=== PATIENT | female | born 1955 | race Caucasian/White ===

== ENCOUNTER → 2016-10-03 | Outpatient (CLI) | payer OTHER ==
[~2016-10-03] MED LIST: CEFU1TAB43 PO; DOXY100T PO; LEVO.075 PO; LISI-585 PO; VALA500 PO
[2016-10-03 13:04] LABS: AUTOMATED NEUTROPHIL # 1.6 TH/MM3 (1.8-7.7); BASOPHIL % 0.2 % (0.0-2.0); EOSINOPHIL # 0.4 TH/MM3 (0-0.4); HEMATOCRIT 41.7 % (35.0-46.0); HEMO FLAGS DIFF FINAL; LYMPH % 38.4 % (9.0-44.0); LYMPHOCYTE # 1.6 TH/MM3 (1.0-4.8); MEAN CELL VOLUME 95.4 FL (80.0-100.0); MEAN CORPUSCULAR HEMOGLOBIN 31.4 PG (27.0-34.0); MEAN CORPUSCULAR HGB CONC 32.9 % (32.0-36.0); MONO % 12.3 % (0.0-8.0); NEUT % 39.1 % (16.0-70.0); PLATELET COUNT 232 TH/MM3 (150-450); RED BLOOD COUNT 4.37 MIL/MM3 (4.00-5.30); RED CELL DISTRIBUTION WIDTH 13.3 % (11.6-17.2); WHITE BLOOD COUNT 4.1 TH/MM3 (4.0-11.0)
[2016-10-03 13:41] LABS: ALKALINE PHOSPHATASE 48 U/L (45-117); ALT (GPT) 35 U/L (10-53); ANION GAP 6 MEQ/L (5-15); AST (GOT) 23 U/L (15-37); BICARBONATE 29.3 MEQ/L (21.0-32.0); BLOOD UREA NITROGEN 19 MG/DL (7-18); CHLORIDE 105 MEQ/L (98-107); FREE T4 0.98 NG/DL (0.76-1.46); GLOMERULAR FILTRATION RATE 71 ML/MIN (>89); GLUCOSE,FASTING 96 MG/DL (74-99); HDL CHOLESTEROL 93.8 MG/DL (40.0-60.0); LDL CHOLESTEROL 127 MG/DL (0-99); POTASSIUM 3.9 MEQ/L (3.5-5.1); SODIUM (NA) 140 MEQ/L (136-145); TOTAL BILIRUBIN ADULT 0.4 MG/DL (0.2-1.0)
== END ==
LOC: PLAB 09:50
PROVIDERS: ATTEND Internal Medicine
DX: Z00.00 Encounter for general adult medical examination without abnormal findings (principal)
CPT/HCPCS: 36415; 80053; 80061; 82306; 84439; 84443; 85025

== ENCOUNTER → 2017-06-26 | Outpatient (CLI) | payer OTHER ==
[2017-06-26 13:19] LABS: AUTOMATED NEUTROPHIL # 1.9 TH/MM3 (1.8-7.7); BASOPHIL # 0.1 TH/MM3 (0-0.2); BASOPHIL % 1.4 % (0.0-2.0); EOSINOPHIL # 0.3 TH/MM3 (0-0.4); EOSINOPHIL % 6.6 % (0.0-4.0); HEMATOCRIT 42.2 % (35.0-46.0); HEMO FLAGS DIFF FINAL; LYMPH % 34.5 % (9.0-44.0); LYMPHOCYTE # 1.4 TH/MM3 (1.0-4.8); MEAN CELL VOLUME 97.4 FL (80.0-100.0); MEAN CORPUSCULAR HEMOGLOBIN 32.1 PG (27.0-34.0); MONO % 12.1 % (0.0-8.0); NEUT % 45.4 % (16.0-70.0); PLATELET COUNT 227 TH/MM3 (150-450); RED BLOOD COUNT 4.34 MIL/MM3 (4.00-5.30); RED CELL DISTRIBUTION WIDTH 13.1 % (11.6-17.2); WHITE BLOOD COUNT 4.1 TH/MM3 (4.0-11.0)
[2017-06-26 13:55] LABS: WESTERGREN SEDIMENTATION RATE 4 mm/hr (0-30)
[2017-06-29 13:53] LABS: IGF ZSCORE MALE ND (()); IGF-1 GC/MS 76 ng/mL (41-279)
== END ==
LOC: PLAB 08:08
PROVIDERS: ATTEND Internal Medicine
DX: R53.83 Other fatigue (principal); R51 Headache
CPT/HCPCS: 36415; 82533; 84146; 84305; 84443; 85025; 85652

== ENCOUNTER 2017-10-30 08:47 | Emergency (ER) | payer OTHER ==
[~2017-10-30] VITALS: Ht 170.2 cm; Wt 66.0 kg
[2017-10-30 08:52] VITALS: BP 208/101; PULSE 85; RESP 16; TEMP 98.5; O2SAT 100
[2017-10-30] MEDS ORDERED: COZA50TA PO (09:25)
[2017-10-30] MEDS ORDERED: LEVO.075 PO (09:25)
[2017-10-30] MEDS ORDERED: VALT1TAB PO (09:25)
--- NOTE | 2017-10-30 09:26 | PD ---
HPI Chief Complaint: Abdominal Pain Time Seen by Provider: 09:01 Travel History International Travel<30 days: No Contact w/Intl Traveler<30days: No Traveled to known affect area: No History of Present Illness HPI Patient presents to the emergency department with 3 days of abdominal pain. Patient states that the pain initially was on the right side of her chest and moved to epigastric area. The pain in the chest area was described as being right-sided, intermittent, seconds in duration, nonradiating, but no chest pain currently. The pain moved to her abdominal area. States that she felt like she had indigestion and took Cassie-[place] without relief. Abdominal pain is described as radiating to her right shoulder/neck/scalp, intermittent, but no pain currently. Also reporting chills but no fever, nausea but no vomiting, decreased p.o. intake (coffee approximately 2 hours ago). Also reports 4 episodes of nonbloody diarrhea that began this morning. Reports that she took Motrin on empty stomach yesterday. PFSH Past Medical History Hx Anticoagulant Therapy: No Cancer: No Cardiovascular Problems: Yes (HTN) Diabetes: No Glaucoma: No Hepatitis: No Hiatal Hernia: No Hypertension: Yes Thyroid Disease: Yes ?: Not Past Surgical History Narrative Surgical Laminectomy, tonsils, jaw for TMJ, left knee Gynecologic Surgery: Yes (D&C) Oral Surgery: Yes (T&A (AGE 21); TMJ SX (FX JAW)) Pacemaker: No Social History Alcohol Use: Yes (SOCIALLY) Tobacco Use: No Allergies-Medications (Allergen,Severity, Reaction): Coded Allergies: Penicillins (Verified Allergy, Severe, rash, 10/30/17) penicillin G (Unverified Allergy, Intermediate, RASH, 10/30/17) Reported Meds & Prescriptions Reported Meds & Active Scripts Active Bentyl (Dicyclomine HCl) 10 Mg Cap 20 Mg PO QID 3 Days Zofran (Ondansetron HCl) 4 Mg Tab 4 Mg PO Q6HR PRN 3 Days Reported Valtrex (Valacyclovir HCl) 1,000 Mg Tab 1,000 Mg PO DAILY Synthroid (Levothyroxine Sodium) 75 Mcg Tab 75 Mcg PO DAILY Cozaar (Losartan Potassium) 50 Mg Tab 50 Mg PO DAILY Review of Systems Except as stated in HPI: all other systems reviewed are Neg Physical Exam Narrative GENERAL: No acute distress SKIN: Focused skin assessment warm/dry. HEAD: Atraumatic. Normocephalic. EYES: No scleral icterus. No injection or drainage. Extra ocular muscles intact. ENT: No nasal bleeding or discharge. Mucous membranes pink and moist. NECK: Trachea midline. No JVD. CARDIOVASCULAR: Regular rate and rhythm. No murmur appreciated. RESPIRATORY: No accessory muscle use. Clear to auscultation. Breath sounds equal bilaterally. GASTROINTESTINAL: Abdomen soft, non-tender, nondistended. Hepatic and splenic margins not palpable. MUSCULOSKELETAL: No obvious deformities. No clubbing. No cyanosis. No edema. NEUROLOGICAL: Awake and alert. No obvious cranial nerve deficits. Motor grossly within normal limits. Normal speech. PSYCHIATRIC: Appropriate mood and affect; insight and judgment normal. Data Data Last Documented VS Vital Signs Date Time Temp Pulse Resp B/P (MAP) Pulse Ox O2 Delivery O2 Flow Rate FiO2 10/30/17 14:30 66 18 124/78 (93) 96 Room Air 10/30/17 08:52 98.5 Orders Orders Complete Blood Count With Diff (10/30/17 09:14) Comprehensive Metabolic Panel (10/30/17 09:14) Lipase (10/30/17 09:14) Abdomen, Flat & Upright (10/30/17 ) Us Abdomen Gallbladder (10/30/17 ) Iv Access Insert/Monitor (10/30/17 09:14) Ecg Monitoring (10/30/17 09:14) Electrocardiogram (10/30/17 09:14) Troponin I (10/30/17 09:14) Hydromorphone Pf Inj (Dilaudid Pf Inj) (10/30/17 11:30) Sodium Chlorid 0.9% 500 Ml Inj (Ns 500 M (10/30/17 11:30) Ct Abd/Pel W Iv Contrast(Rout) (10/30/17 11:19) Sodium Chloride 0.9% Flush (Ns Flush) (10/30/17 11:30) Iohexol 350 Inj (Omnipaque 350 Inj) (10/30/17 11:52) Famotidine Inj (Pepcid Inj) (10/30/17 12:45) Al-Mag Hy-Si 40-40-4 Mg/Ml Liq (Mag-Al P (10/30/17 12:45) Anmoe-Jdqxyn-Trqnft-Pb Liq ( Liq (10/30/17 12:45) Lidocaine 2% Viscous (Xylocaine 2% Visco (10/30/17 12:45) Ondansetron Inj (Zofran Inj) (10/30/17 14:15) Sodium Chlorid 0.9% 500 Ml Inj (Ns 500 M (10/30/17 14:15) Labs Laboratory Tests Test 10/30/17 09:30 White Blood Count 5.9 TH/MM3 Red Blood Count 4.45 MIL/MM3 Hemoglobin 14.4 GM/DL Hematocrit 42.3 % Mean Corpuscular Volume 95.0 FL Mean Corpuscular Hemoglobin 32.3 PG Mean Corpuscular Hemoglobin Concent 34.0 % Red Cell Distribution Width 12.7 % Platelet Count 246 TH/MM3 Mean Platelet Volume 8.0 FL Neutrophils (%) (Auto) 66.1 % Lymphocytes (%) (Auto) 21.4 % Monocytes (%) (Auto) 7.6 % Eosinophils (%) (Auto) 4.3 % Basophils (%) (Auto) 0.6 % Neutrophils # (Auto) 3.9 TH/MM3 Lymphocytes # (Auto) 1.3 TH/MM3 Monocytes # (Auto) 0.4 TH/MM3 Eosinophils # (Auto) 0.3 TH/MM3 Basophils # (Auto) 0.0 TH/MM3 CBC Comment DIFF FINAL Differential Comment Blood Urea Nitrogen 10 MG/DL Creatinine 0.67 MG/DL Random Glucose 109 MG/DL Total Protein 7.9 GM/DL Albumin 3.9 GM/DL Calcium Level 9.4 MG/DL Alkaline Phosphatase 62 U/L Aspartate Amino Transf (AST/SGOT) 30 U/L Alanine Aminotransferase (ALT/SGPT) 32 U/L Total Bilirubin 0.6 MG/DL Sodium Level 139 MEQ/L Potassium Level 4.2 MEQ/L Chloride Level 105 MEQ/L Carbon Dioxide Level 27.0 MEQ/L Anion Gap 7 MEQ/L Estimat Glomerular Filtration Rate 89 ML/MIN Troponin I LESS THAN 0.02 NG/ML Lipase 175 U/L MDM Medical Decision Making Medical Screen Exam Complete: Yes Emergency Medical Condition: Yes Interpretation(s) EKG: Sinus rhythm, rate 68, normal axis, normal intervals, no ST depression, no ST elevation, no Q waves, T wave inversion in V1. ABD XR: FINDINGS: Supine and upright views of the abdomen were performed. The abdominal bowel gas pattern is normal. No air fluid levels are seen. No abnormal masses, calcifications, or organomegaly is seen. The visualized lower lungs are clear. No evidence of free intraperitoneal gas. The osseous structures are unremarkable. CONCLUSION: Negative Last Impressions Gall Bladder Ultrasound 10/30/17 Signed Impressions: Service Date/Time: Monday, October 30, 2017 09:55 - CONCLUSION: Normal examination. Rudi Carrasco MD Abdomen X-Ray 10/30/17 Signed Impressions: Service Date/Time: Monday, October 30, 2017 09:36 - CONCLUSION: Negative Juaquin Zazueta MD FACR Ct abd/pelvis FINDINGS: LOWER LUNGS: The visualized lower lungs are clear. LIVER: Homogeneous density without lesion. There is no dilation of the biliary tree. No calcified gallstones. SPLEEN: Normal size without lesion. PANCREAS: Within normal limits. KIDNEYS: Normal in size and shape. There is no mass, stone or hydronephrosis. ADRENAL GLANDS: Within normal limits. VASCULAR: There is no aortic aneurysm. There is mild atherosclerotic calcification of the internal iliac vessels. BOWEL/MESENTERY: The stomach, small bowel, and colon demonstrate no acute abnormality. There is no free intraperitoneal air or fluid. The appendix and terminal ileum have a normal appearance. ABDOMINAL WALL: Within normal limits. RETROPERITONEUM: There is no lymphadenopathy. BLADDER: No wall thickening or mass. REPRODUCTIVE: Within normal limits. INGUINAL: There is no lymphadenopathy or hernia. MUSCULOSKELETAL: No acute osseous abnormality is identified. CONCLUSION: No acute abnormality is identified within the abdomen or pelvis. 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 Presents with 3 day history of epigastric pain, initially began as right sided chest pain, diarrhea 1 day. Check labs, ultrasound, abdominal x-ray. Patient is not requesting any pain medication or antiemetic. 1330: Patient received IV pepcid and GI cocktail. She vomited the GI cocktail. Given 4mg IV zofran. 1504: Patient reprts feeling better, drinking gingerale, no pain in chest/ shoulder/neck/head but states stomach is churning with the gingerale a little. 1546: Patient feels better. Tolerated po but states stomach churning "just a little." Will d/c with bentyl and zofran prn. Return instructions. Diagnosis Primary Impression: Gastroenteritis Patient Instructions: Gastroenteritis (ED), General Instructions Additional Instructions: 1. Followup with PCP in 48 to 72 hours. 2. Return to ER immediately for fever, bloody diarrhea, chest pain,abdominal pain, shortness of breath, vomiting despite zofran or if taking zofran more than twice in 24 hours, or for any new/ worrisome/worsening symptoms. Med/Other Pt SpecificInfo: Prescription(s) given Scripts Dicyclomine (Bentyl) 10 Mg Cap 20 MG PO QID for Bowel Management for 3 Days, CAP 0 Refills Prov: Melinda Chacko MD 10/30/17 Ondansetron (Zofran) 4 Mg Tab 4 MG PO Q6HR Y for NAUSEA OR VOMITING for 3 Days, #12 TAB 0 Refills Prov: Melinda Chacko MD 10/30/17 Disposition: 01 DISCHARGE HOME Condition: Stable Melinda Chacko MD Oct 30, 2017 09:26
[2017-10-30 09:39] LABS: AUTOMATED NEUTROPHIL # 3.9 TH/MM3 (1.8-7.7); BASOPHIL % 0.6 % (0.0-2.0); EOSINOPHIL # 0.3 TH/MM3 (0-0.4); EOSINOPHIL % 4.3 % (0.0-4.0); HEMATOCRIT 42.3 % (35.0-46.0); HEMOGLOBIN 14.4 GM/DL (11.6-15.3); LYMPH % 21.4 % (9.0-44.0); LYMPHOCYTE # 1.3 TH/MM3 (1.0-4.8); MEAN CORPUSCULAR HEMOGLOBIN 32.3 PG (27.0-34.0); MONO % 7.6 % (0.0-8.0); MONOCYTE # 0.4 TH/MM3 (0-0.9); NEUT % 66.1 % (16.0-70.0); PLATELET COUNT 246 TH/MM3 (150-450); RED BLOOD COUNT 4.45 MIL/MM3 (4.00-5.30); RED CELL DISTRIBUTION WIDTH 12.7 % (11.6-17.2); WHITE BLOOD COUNT 5.9 TH/MM3 (4.0-11.0)
[2017-10-30 09:55] LABS: ALBUMIN 3.9 GM/DL (3.4-5.0); BLOOD UREA NITROGEN 10 MG/DL (7-18); CALCIUM 9.4 MG/DL (8.5-10.1); CHLORIDE 105 MEQ/L (98-107); GLUCOSE,RANDOM 109 MG/DL (74-106); SODIUM (NA) 139 MEQ/L (136-145)
[2017-10-30 09:58] LABS: ALKALINE PHOSPHATASE 62 U/L (45-117); ALT (GPT) 32 U/L (10-53); AST (GOT) 30 U/L (15-37); CREATININE 0.67 MG/DL (0.50-1.00); GLOMERULAR FILTRATION RATE 89 ML/MIN (>89)
[2017-10-30 10:00] LABS: TOTAL BILIRUBIN ADULT 0.6 MG/DL (0.2-1.0); TOTAL PROTEIN 7.9 GM/DL (6.4-8.2); TROPONIN I LESS THAN 0.02 NG/ML (0.02-0.05)
--- NOTE | 2017-10-30 10:01 | RADRPT ---
EXAM DATE/TIME: 10/30/2017 09:36 [facility] COMPARISON: No previous studies available for comparison. INDICATIONS : Right epigastric pain, nausea, belching. MEDICAL HISTORY : Hypertension. Asthma. Thyroid disease. SURGICAL HISTORY : D & C. Laminectomy. Left knee arthroscopy. ENCOUNTER: Initial ACUITY: 3 days PAIN SCORE: 6/10 LOCATION: Right abdomen FINDINGS: Supine and upright views of the abdomen were performed. The abdominal bowel gas pattern is normal. No air fluid levels are seen. No abnormal masses, calcifications, or organomegaly is seen. The visu alized lower lungs are clear. No evidence of free intraperitoneal gas. The osseous structures are u nremarkable. CONCLUSION: Negative Juaquin Zazueta MD FACR on October 30, 2017 at 9:59 Board Certified Radiologist. This report was verified electronically.
[2017-10-30 10:16] VITALS: BP 155/82; PULSE 74; RESP 16; O2SAT 99
--- NOTE | 2017-10-30 10:31 | RADRPT ---
EXAM DATE/TIME: 10/30/2017 09:55 [facility] COMPARISON: No previous studies available for comparison. INDICATIONS : Nausea and vomiting. Right flank and back pain. MEDICAL HISTORY : Hypertension. SURGICAL HISTORY : Laminectomy. Tonsillectomy. Jaw surgery. Left knee surgery. ENCOUNTER: Initial ACUITY: 3 days PAIN SCORE: 8/10 LOCATION: Right upper quadrant MEASUREMENTS: LIVER: 13.6 cm length COMMON DUCT: 3 mm RIGHT KIDNEY: 11.0 x 5.1 x 4.1 cm FINDINGS: LIVER: Normal echotexture without focal lesion or ductal dilatation. COMMON DUCT: No intraluminal mass or stone visualized. GALLBLADDER: Contains no stones, demonstrates no wall thickening or pericholecystic fluid. PANCREAS: The visualized portions are within normal limits. RIGHT KIDNEY: No evidence of hydronephrosis, stone, or mass. CONCLUSION: Normal examination. Rudi Carrasco MD on October 30, 2017 at 10:20 Board Certified Radiologist. This report was verified electronically.
[2017-10-30 11:30] VITALS: BP 144/82; PULSE 81; RESP 20; O2SAT 98
[2017-10-30] MEDS ORDERED: SODIUM CHLORID 0.9% 500 ML INJ 500 ML IV ONE ×2 (11:30→14:15)
[2017-10-30] MEDS ORDERED: HYDROmorphone HCL PF 2 MG/ML VIAL IV PUSH ONE (11:30)
[2017-10-30] MEDS ORDERED: SODIUM CHLORIDE 0.9% FLUSH 10 ML FLUSH IV FLUSH PRN (11:30)
[2017-10-30] MEDS ORDERED: IOHEXOL 350 MG/ML 10 ML VIAL (for RAD DIAG) IVCONTRAST ONE (11:52)
--- NOTE | 2017-10-30 12:07 | RADRPT ---
EXAM DATE/TIME: 10/30/2017 11:45 [facility] COMPARISON: No previous studies available for comparison. INDICATIONS : Epigastric pain x 3 days. Diarrhea today. IV CONTRAST: 85 cc Omnipaque 350 (iohexol) IV ORAL CONTRAST: No oral contrast ingested. RADIATION DOSE: 7.74 CTDIvol (mGy) MEDICAL HISTORY : Hypertension. Asthma. SURGICAL HISTORY : Laminectomy. ENCOUNTER: Initial ACUITY: 3 days PAIN SCALE: 8/10 LOCATION: Epigastric TECHNIQUE: Volumetric scanning of the abdomen and pelvis was performed. Using automated exposure control and ad justment of the mA and/or kV according to patient size, radiation dose was kept as low as reasonably achievable to obtain optimal diagnostic quality images. DICOM format image data is available electro nically for review and comparison. FINDINGS: LOWER LUNGS: The visualized lower lungs are clear. LIVER: Homogeneous density without lesion. There is no dilation of the biliary tree. No calcified gallston es. SPLEEN: Normal size without lesion. PANCREAS: Within normal limits. KIDNEYS: Normal in size and shape. There is no mass, stone or hydronephrosis. ADRENAL GLANDS: Within normal limits. VASCULAR: There is no aortic aneurysm. There is mild atherosclerotic calcification of the internal iliac vessel s. BOWEL/MESENTERY: The stomach, small bowel, and colon demonstrate no acute abnormality. There is no free intraperitone al air or fluid. The appendix and terminal ileum have a normal appearance. ABDOMINAL WALL: Within normal limits. RETROPERITONEUM: There is no lymphadenopathy. BLADDER: No wall thickening or mass. REPRODUCTIVE: Within normal limits. INGUINAL: There is no lymphadenopathy or hernia. MUSCULOSKELETAL: No acute osseous abnormality is identified. CONCLUSION: No acute abnormality is identified within the abdomen or pelvis. Rudi Judd MD on October 30, 2017 at 12:02 Board Certified Radiologist. This report was verified electronically.
[2017-10-30] MEDS ORDERED: LIDOCAINE VISCOUS 2% SOLN 15 ML UDC PO ONE (12:45)
[2017-10-30] MEDS ORDERED: FAMOTIDINE 20 MG/2 ML VIAL IV PUSH ONE (12:45)
[2017-10-30] MEDS ORDERED: ATROPINE/SCOPOLAM/HYOSCYAM/PB ELIXIR 10 ML CUP PO ONE (12:45)
[2017-10-30] MEDS ORDERED: ALUMINUM/MAGNESIUM/SIMETH 30 ML CUP PO ONE (12:45)
[2017-10-30] MEDS ORDERED: ONDANSETRON HCL 4 MG/2 ML VIAL IV PUSH ONE (14:15)
[2017-10-30 14:30] VITALS: BP 124/78; PULSE 66; RESP 18; O2SAT 96
[2017-10-30] MEDS ORDERED: ZOFR4TAB PO (15:28)
[2017-10-30] MEDS ORDERED: DICY10 PO (15:35)
--- NOTE | 2017-10-31 16:56 | EKG ---
Date Performed: 10/30/2017 Time Performed: 09:27:30 PTAGE: 62 years EKG: Sinus rhythm NORMAL ECG Since the PREVIOUS TRACING , no significant change noted PREVIOUS TRACIN04/03/2008 14.33 DOCTOR: Alex Damon Interpretating Date/Time 10/31/2017 16:50:47
== END 2017-10-30 16:20 | disposition home or self-care (01) ==
LOC: PHED 08:47
DX: K52.9 Noninfective gastroenteritis and colitis, unspecified (principal); R07.9 Chest pain, unspecified; I10 Essential (primary) hypertension; E07.9 Disorder of thyroid, unspecified; Z79.899 Other long term (current) drug therapy; Z88.0 Allergy status to penicillin
CPT/HCPCS: 74019; 74177; 76705; 80053; 83690; 84484; 85025; 93005; 96361; 96374; 96375; 99285; J1170; J2405; J7040; Q9967